=== PATIENT | male | born 1995 | race Caucasian/White ===

== ENCOUNTER 2017-02-25 15:29 | Emergency (ER) | payer BC ==
[~2017-02-25] VITALS: Ht 172.7 cm; Wt 99.0 kg
[2017-02-25 15:39] VITALS: Ht 172.7 cm; Wt 99.0 kg
[2017-02-25] MEDS ORDERED: LIDOCAINE/MYLANTA 40 ML BTL PO STA (16:27)
[2017-02-25 16:58] LABS: BASOPHILS % 0.3 % (0.0-2.0); EOSINOPHILS # 0.1 10^3/ul (0.0-0.5); EOSINOPHILS % 0.8 % (0.0-7.0); HEMATOCRIT 47.3 % (42.0-52.0); HEMOGLOBIN 15.9 g/dl (14.0-18.0); LYMPHOCYTES # 2.6 10^3/ul (0.8-2.9); LYMPHOCYTES % 40.2 % (15.0-51.0); MEAN CORPUSCULAR HEMOGLOBIN 30.6 pg (29.0-33.0); MEAN CORPUSCULAR HGB CONC 33.6 g/dl (32.0-37.0); MEAN CORPUSCULAR VOLUME 91.1 fl (82.0-101.0); MONOCYTE # 0.4 10^3/ul (0.3-0.9); MONOCYTES % 6.2 % (0.0-11.0); NEUTROPHIL # 3.4 10^3/ul (1.6-7.5); NEUTROPHILS % 52.2 % (39.0-77.0); PLATELET COUNT 199 10^3/UL (140-415); RED BLOOD COUNT 5.19 10^6/ul (4.70-6.10); RED CELL DISTRIBUTION WIDTH 11.9 % (11.5-14.5); WHITE BLOOD COUNT 6.5 10^3/ul (4.8-10.8)
--- NOTE | 2017-02-25 17:00 | RADRPT ---
PROCEDURE: US Abdomen Limited . CLINICAL INDICATION: Abdominal pain TECHNIQUE: Multiple real-time images were acquired of the patient's right upper quadrant abdomen u tilizing a high resolution transducer. COMPARISON: None FINDINGS: The liver measures 14.4 cm and demonstrates a normal echogenicity. The gallbladder is filled with a moderate amount of bile. No shadowing echogenic stones or masses are seen in the gallbladder. The gallbladder wall is not thickened at 1.7 mm. No pericholecystic fluid is noted. The common bile duct measures 3.2 mm in diameter. The pancreas is not well visualized. Antegrade flow is seen in the portal vein. IMPRESSION: Pancreas not well visualized. If characterization of this structure is needed repeat exam or CT/MRI is recommended. Otherwise, unremarkable exam. RPTAT: AA .Deniz Henderson MD, Date Time Electronically viewed and signed by .Deniz Henderson MD, on 02/25/2017 17:00 .P/
--- NOTE | 2017-02-25 17:02 | RADRPT ---
PROCEDURE: Ultrasound Retroperitoneum. CLINICAL INDICATION: Left flank pain. TECHNIQUE: Yang scale and color flow sonographic images of the kidneys and retroperitoneum were ob tained. The images were reviewed on a PACS workstation. COMPARISON: No prior studies are available for comparison. FINDINGS: The right kidney measures 10.1 cm. The left kidney measures 10.7 cm. The kidneys demonstrate normal echogenicity. No masses, stones or hydronephrosis are identified. The bladder is filled with a small amount of urine and has an unremarkable appearance. IMPRESSION: Unremarkable kidneys. RPTAT: AA .Deniz Henderson MD, Date Time Electronically viewed and signed by .Deniz Henderson MD, on 02/25/2017 17:01 .P/
[2017-02-25 17:28] LABS: ALBUMIN 4.8 g/dl (3.3-4.9); ALBUMIN/GLOBULIN RATIO 1.29; BILIRUBIN,INDIRECT 0.4 mg/dl (0-1.1); BILIRUBIN,TOTAL 0.4 mg/dl (0.2-1.3); CREATININE 0.96 mg/dl (0.61-1.24); TOTAL PROTEIN 8.5 g/dl (6.1-8.1)
[2017-02-25 17:34] LABS: ADD UMIC NO; UR ASCORBIC ACID NEGATIVE (NEGATIVE); UR BILIRUBIN (Dip) NEGATIVE (NEGATIVE); UR BLOOD (Dip) NEGATIVE (NEGATIVE); UR CLARITY CLEAR (CLEAR); UR COLOR STRAW (YELLOW); UR GLUCOSE (Dip) NEGATIVE (NEGATIVE); UR KETONES (Dip) NEGATIVE (NEGATIVE); UR LEUKOCYTE ESTERASE (Dip) NEGATIVE Leu/ul (NEGATIVE); UR NITRITE (Dip) NEGATIVE (NEGATIVE); UR SPECIFIC GRAVITY (Dip) 1.008 (1.003-1.030); UR TOTAL PROTEIN (Dip) NEGATIVE (NEGATIVE); UR UROBILINOGEN (Dip) NEGATIVE (NEGATIVE)
--- NOTE | 2017-02-25 17:57 | ERD ---
ER Documentation Chief Complaint Date/Time DATE: 02/25/17 Chief Complaint Abdominal pain HPI The patient is a 21-year-old male who presents to the Emergency Department with complaint of abdominal pain. The patient reports that his pain has been occurring intermittently over the past 1-2 months. It is burning and aching in nature, localized to the epigastric region of the abdomen, and radiating to the left upper quadrant. The pain is worse after eating certain foods, particularly those that are fried or greasy.He denies any alleviating factors. Denies associated nausea, vomiting, diarrhea, black stools, dysuria, hematuria, flank pain. The patient notes that he was evaluated by a medical provider for these symptoms, and was advised that they are likely secondary to PID vs. gastritis. Therefore, he was given a prescription for Famotidine, which he has been taking with no significant relief. He denies any change in diet. He denies fevers, sweats, chills, chest pain, palpitations, shortness of breath, cough. He has not returned for further evaluation with his PMD, and has not yet seen a GI specialist. Additionally, patient denies any testicular pain, swelling or urethral discharge. Denies any new unprotected sexual intercourse. However, since he is here, he is requesting GC/Chlamydia testing. ROS All systems reviewed and are negative except as per history of present illness. Medications Home Meds Active Scripts Magaldrate/Simethicone* (Mag-Al Plus Suspension*) 30 Ml Oral.susp, 30 ML PO Q6H Y for GASTROINTESTINAL UPSET, #120 ML Prov:RONNI INTERIANO PA-C 02/25/17 Pantoprazole* (Protonix*) 40 Mg Tablet.dr, 40 MG PO DAILY, #20 TAB Prov:RONNI INTERIANO PA-C 02/25/17 Allergies Allergies: Coded Allergies: No Known Allergy (Unverified , 02/25/17) PMhx/Soc Medical and Surgical Hx: pt denies Medical Hx, pt denies Surgical Hx Hx Alcohol Use: No Hx Substance Use: No Hx Tobacco Use: No Smoking Status: Never smoker Physical Exam Vitals Vital Signs Date Time Temp Pulse Resp B/P Pulse Ox O2 Delivery O2 Flow Rate FiO2 02/25/17 15:39 97.8 64 16 139/77 99 Physical Exam GENERAL: Well-developed, well-nourished, in no acute distress HEENT: Head is normocephalic, atraumatic. No scleral pallor or icterus. Pupils equal, round and reactive to light. Conjunctiva pink. Moist mucous membranes. NECK: Supple.Full range of motion . RESPIRATORY: Lungs are clear to auscultation bilaterally. No rales, rhonchi or wheezing. Equal breath sounds. Normal expiratory effort. CARDIOVASCULAR: Regular rate and rhythm. S1 and S2 normal. GASTROINTESTINAL: Abdomen is soft, nontender, and nondistended. No guarding, no rebound tenderness. Normal bowel sounds. No gross peritonitis. No tenderness at McBurney's point. Negative Ayon's sign. FLANK: No CVA tenderness, no mass or swelling. BACK: No midline tenderness. No paraspinal tenderness. RECTAL EXAM: Normal tone, brown stool, heme/guaiac negative. Small anal fissure seen at 2 o'clock position. GENITOURINARY: Normal external genitalia. No discharge. EXTREMITIES: No clubbing, cyanosis, or edema. Normal skin perfusion. Moving all extremities. No focal swelling or erythema. NEUROLOGIC: The patient is alert, awake, and oriented x 3. No focal neurologic deficits. INTEGUMENT: Skin is clean, dry and intact. No rashes, lesions or petechiae present. PSYCHIATRIC: Appropriate; Cooperative. Result Diagram: 02/25/17 1640 02/25/17 1640 Results 24 hrs Laboratory Tests Test 02/25/17 16:40 White Blood Count 6.510^3/ul Red Blood Count 5.1910^6/ul Hemoglobin 15.9g/dl Hematocrit 47.3% Mean Corpuscular Volume 91.1fl Mean Corpuscular Hemoglobin 30.6pg Mean Corpuscular Hemoglobin Concent 33.6g/dl Red Cell Distribution Width 11.9% Platelet Count 99331^3/UL Mean Platelet Volume 11.0fl Neutrophils % 52.2% Lymphocytes % 40.2% Monocytes % 6.2% Eosinophils % 0.8% Basophils % 0.3% Nucleated Red Blood Cells % 0.0/100WBC Neutrophils # 3.410^3/ul Lymphocytes # 2.610^3/ul Monocytes # 0.410^3/ul Eosinophils # 0.110^3/ul Basophils # 0.010^3/ul Nucleated Red Blood Cells # 0.010^3/ul Urine Color STRAW Urine Clarity CLEAR Urine pH 7.0 Urine Specific [place] 1.008 Urine Ketones NEGATIVEmg/dL Urine Nitrite NEGATIVEmg/dL Urine Bilirubin NEGATIVEmg/dL Urine Urobilinogen NEGATIVEmg/dL Urine Leukocyte Esterase NEGATIVELeu/ul Urine Hemoglobin NEGATIVEmg/dL Urine Glucose NEGATIVEmg/dL Urine Total Protein NEGATIVEmg/dl Sodium Level 142mmol/L Potassium Level 4.0mmol/L Chloride Level 103mmol/L Carbon Dioxide Level 29mmol/L Anion Gap 14 Blood Urea Nitrogen 15mg/dl Creatinine 0.96mg/dl Glucose Level 99mg/dl Calcium Level 10.0mg/dl Total Bilirubin 0.4mg/dl Direct Bilirubin 0.00mg/dl Indirect Bilirubin 0.4mg/dl Aspartate Amino Transf (AST/SGOT) 42IU/L Alanine Aminotransferase (ALT/SGPT) 57IU/L Alkaline Phosphatase 80IU/L Total Protein 8.5g/dl Albumin 4.8g/dl Globulin 3.70g/dl Albumin/Globulin Ratio 1.29 Lipase 82U/L Current Medications Medications (Trade) Dose Ordered Sig/Jorgito Route PRN Reason Start Time Stop Time Status Last Admin Dose Admin Miscellaneous Medication (Gi Cocktail (2)) 40 ml ONCE STAT PO 02/25/17 16:27 02/25/17 16:30 DC 02/25/17 16:36 Procedures/MDM EMERGENCY DEPARTMENT COURSE: The patient was stable throughout the ED course. and rectal examination performed with ED RN at bedside as cistern room operator. Laboratory testing, US imaging ordered. GI cocktail to be administered for symptomatic treatment. Patient took Pepcid prior to arrival. DIAGNOSTIC TESTS AND INTERPRETATION: PROCEDURE: US Abdomen Limited . CLINICAL INDICATION: Abdominal pain TECHNIQUE: Multiple real-time images were acquired of the patient's right upper quadrant abdomen utilizing a high resolution transducer. COMPARISON: None FINDINGS: The liver measures 14.4 cm and demonstrates a normal echogenicity. The gallbladder is filled with a moderate amount of bile. No shadowing echogenic stones or masses are seen in the gallbladder. The gallbladder wall is not thickened at 1.7 mm. No pericholecystic fluid is noted. The common bile duct measures 3.2 mm in diameter. The pancreas is not well visualized. Antegrade flow is seen in the portal vein. IMPRESSION: Pancreas not well visualized. If characterization of this structure is needed repeat exam or CT/MRI is recommended. Otherwise, unremarkable exam. .Deniz Henderson MD, MD Date Time Electronically viewed and signed by .Deniz Henderson MD, MD on 02/25/2017 17:00 PROCEDURE: Ultrasound Retroperitoneum. CLINICAL INDICATION: Left flank pain. TECHNIQUE: Yang scale and color flow sonographic images of the kidneys and retroperitoneum were obtained. The images were reviewed on a PACS workstation. COMPARISON: No prior studies are available for comparison. FINDINGS: The right kidney measures 10.1 cm. The left kidney measures 10.7 cm. The kidneys demonstrate normal echogenicity. No masses, stones or hydronephrosis are identified. The bladder is filled with a small amount of urine and has an unremarkable appearance. IMPRESSION:Unremarkable kidneys. .Deniz Henderson MD, MD Date Time Electronically viewed and signed by .Deniz Henderson MD, MD on 02/25/2017 17:01 MEDICAL DECISION MAKING: This is a 21-year-old male presenting to the Emergency Department with complaint of epigastric abdominal pain radiating to the left upper abdomen. The patient had no significant abnormalities noted on physical examination and vital signs were stable. Differential diagnosis includes, but is not limited to, gastroenteritis, gastritis, cholecystitis, cholangitis, choledocholithiasis, pancreatitis, perforated viscus, mesenteric ischemia, GERD , PUD, urinary tract infection, pyelonephritis, pneumonia, hepatitis, infectious diarrhea, IBD, torsion, bowel obstruction, appendicitis, diverticulitis. No significant acute abnormalities were noted on laboratory or imaging modalities ordered. After rest and administration of medications, the patient reports no new complaints and much decreased pain and symptoms. Upon review and interpretation of the patient's presentation and overall ER course, I believe the patient's symptoms are most consistent with abdominal pain , , uncertain etiology, but possibly secondary to gastritis vs. PUD. I doubt cholecystitis, no abnormalities or indication of disease process noted on ultrasound, negative Ayon's sign. Doubt pancreatitis - clinical presentation inconsistent. Doubt perforated ulcer, patient has a non-surgical abdomen. Doubt small bowel obstruction, patient is passing flatus, abdomen is non- distended. Doubt appendicitis, patient has no McBurney's point tenderness, no guarding, non-surgical abdomen, no tenderness over the RLQ. Doubt diverticulitis, exam inconsistent. Doubt ischemic bowel, no pain out of proportion to examination. Doubt torsion, symptoms and examination inconsistent. At this time, the patient is in stable condition with stable vital signs and therefore can be discharged home with prescription for Myanta and Pantoprazole, and strict return precautions for signs of deteriorating or worsening condition. He is advised to follow up with a primary care provider and GI specialist in 2-3 days for reevaluation and further management, or return to the ER sooner if symptoms worsen. I shared my medical decision making, plan, as well as the results with the patient at length and in great detail, and he verbally understands and agrees with the plan for further observation and care as an outpatient. At the time of discharge, all questions were answered. Additionally, per patient request, gonorrhea/chlamydia testing sent. Departure Diagnosis: Primary Impression: Abdominal pain Abdominal location: upper abdomen, unspecified Qualified Code: R10.10 - Pain of upper abdomen Condition: Stable Patient Instructions: Abdominal Pain, Gastritis (Adult), Gastritis Vs. Ulcer, Treating Gastritis, Understanding Gastritis Referrals: ALEXANDRU CASTELLANO MD, MORDO MD Additional Instructions: Follow up with your primary medical provider and a GI specialist for further evaluation, management and possible endoscopy. Return to the ED for any new or worsening symptoms. RONNI INTERIANO PA-C Feb 25, 2017 17:57
[2017-02-25] MEDS ORDERED: UDMYL PO (17:58)
[2017-02-25] MEDS ORDERED: PANT40TA3 PO (17:58)
== END 2017-02-25 18:10 | disposition home or self-care (01) ==
LOC: FTE 15:29
DX: R10.13 Epigastric pain (principal)
CPT/HCPCS: 36415; 76705; 76775; 80053; 81003; 83690; 85025; 87591